=== PATIENT | male | born 1975 ===

== ENCOUNTER 2021-06-28 21:57 | Inpatient (IN) ==
[2021-06-28] MEDS ORDERED: Thiamine 100 MG/ML 2 ml VIAL (200 mg) IV ONE (22:31)
[2021-06-28 22:54] LABS: ABS Neutrophils 10.4 10^3/ul (1.5-7.7); Eosinophil % 0.1 %; Hematocrit 37 % (42-52); Hemoglobin 12.5 g/dL (14.0-18.0); Lymphocyte % 7.9 %; Mean Corpuscular HGB Conc 34 g/dL (31-36); Mean Corpuscular Hemoglobin 38 pg (27-31); Mean Corpuscular Volume 112 fL (80-94); Mean Platelet Volume 7.3 fL (7.4-10.4); Nucleated Red Blood Cells % 0.1; Platelet Count 232 10^3/uL (150-450); Red Blood Count 3.28 10^6 /uL (4.18-5.48); Red Cell Distribution Width 17 % (10-15); White Blood Count 12.4 10^3/uL (3.5-10.8)
[2021-06-28 23:08] LABS: Albumin 4.1 g/dL (3.2-5.2); Albumin/Globulin Ratio 1.5 (1-3); EGFR Non-African American 244.6 (>60); Globulin 2.7 g/dL (2-4); Magnesium 1.8 mg/dL (1.9-2.7); Potassium 3.1 mmol/L (3.5-5.0); Total Bilirubin 0.7 mg/dL (0.2-1.0); Total Protein 6.8 g/dL (6.4-8.9)
[2021-06-28 23:11] LABS: Troponin I 0.01 ng/mL (<0.03)
[2021-06-28 23:28] LABS: TSH Ultra Thyroid Stim Horm 2.51 mcIU/mL (0.34-5.60)
[2021-06-28] MEDS ORDERED: Dextrose 50% Syringe 50 ml 25 GM/50 ML SYRINGE IV PUSH ONE (23:31)
[2021-06-28] MEDS ORDERED: Potassium Chlor 20 meq TAB.ER PO ONE (23:53)
[2021-06-28] MEDS ORDERED: Magnesium Sulfate 2 gm BAG 2 GM/50 ML BAG IVPB ONE (23:53)
[2021-06-29] MEDS ORDERED: Al Hydrox/Mg Hydrox/Simet LIQ 30 ML UDC PO PRN (02:56)
[2021-06-29 03:07] LABS: Urine Appearance Clear; Urine Bilirubin Negative (Negative); Urine Blood Negative (Negative); Urine Color Yellow; Urine Glucose 3+(>=500 mg/dL) (Negative); Urine Ketones 2+ (Negative); Urine Nitrite Negative (Negative); Urine Protein 2+(100 mg/dL) (Negative); Urine Specific Gravity 1.021 (1.002-1.030); Urine Urobilinogen Negative (Negative)
[2021-06-29 03:13] LABS: Urine Bacteria Absent (Absent); Urine Red Blood Cell Absent (Absent); Urine Squamous Epithelial Cell Present (Absent); Urine White Blood Cell Absent (Absent)
[2021-06-29] MEDS: Enoxaparin 40 MG/0.4 ML SYR SUBCUT SCH (03:36)
[2021-06-29] MEDS ORDERED: Dextrose 50% Syringe 50 ml 25 GM/50 ML SYRINGE IV PUSH PRN (03:55)
[2021-06-29] MEDS ORDERED: D10W 1000 ml BAG 1,000 ML IV SCH (04:00)
[2021-06-29] MEDS ORDERED: Thiamine 100 MG/ML 2 ml VIAL 500 MG in NS 0.9% 250 ml 250 ML IV STA (08:52)
[2021-06-29] MEDS ORDERED: [UNRECOGNIZED DRUG - OTHER] IV SCH (09:00)
[2021-06-29] MEDS ORDERED: PRIVIGEN IV SCH (09:00)
[2021-06-29] MEDS ORDERED: IMMUNE GLOB IV SCH (09:00)
[2021-06-29 10:23] LABS: ABS Lymphocytes 0.4 10^3/ul (1.0-4.8); ABS Monocytes 0.3 10^3/ul (0-0.8); ABS Neutrophils 12.5 10^3/ul (1.5-7.7); Eosinophil % 0.2 %; Hematocrit 34 % (42-52); Hemoglobin 11.7 g/dL (14.0-18.0); Lymphocyte % 2.7 %; Mean Corpuscular HGB Conc 35 g/dL (31-36); Mean Corpuscular Hemoglobin 38 pg (27-31); Mean Corpuscular Volume 110 fL (80-94); Mean Platelet Volume 7.5 fL (7.4-10.4); Nucleated Red Blood Cells % 0.2; Platelet Count 235 10^3/uL (150-450); Red Blood Count 3.07 10^6 /uL (4.18-5.48); Red Cell Distribution Width 17 % (10-15); White Blood Count 13.2 10^3/uL (3.5-10.8)
[2021-06-29 10:37] LABS: Albumin 3.8 g/dL (3.2-5.2); Albumin/Globulin Ratio 1.5 (1-3); C Reactive Protein 63.16 mg/L (<8.01); Calcium 8.8 mg/dL (8.6-10.3); EGFR Non-African American 244.6 (>60); Globulin 2.5 g/dL (2-4); Potassium 3.2 mmol/L (3.5-5.0); Total Protein 6.3 g/dL (6.4-8.9)
[2021-06-29 12:06] LABS: Erythrocyte Sed Rate 12 mm/Hr (0-14)
[2021-06-29] MEDS ORDERED: Lactated Ringers 1000 ml BAG 1,000 ML IV ONE (12:21)
[2021-06-29] MEDS ORDERED: Potassium Chlor 20 meq TAB.ER PO ONE (12:43)
[2021-06-29 12:44] LABS: Hepatitis C Antibody Negative (Negative)
[2021-06-29] MEDS: D5W 1/2 NS 1000 ml BAG 1,000 ML IV SCH ×2 (14:52→23:58)
[2021-06-29 15:29] LABS: HIV 4th Generation Preliminary Reactive (Nonreactive)
[2021-06-29] MEDS: PRIVIGEN IV SCH (15:41)
[2021-06-29] MEDS: IMMUNE GLOB IV SCH (15:41)
[2021-06-29] MEDS: [UNRECOGNIZED DRUG - OTHER] IV SCH (15:41)
[2021-06-29 16:30] LABS: INR 0.98 (0.86-1.15)
[2021-06-29 16:54] LABS: Calcium 8.1 mg/dL (8.6-10.3); Potassium 3.8 mmol/L (3.5-5.0)
[2021-06-29 17:00] LABS: EGFR African American 305.3 (>60); EGFR Non-African American 252.3 (>60)
[2021-06-29 17:58] LABS: Activated Partial Thrombo Time 25.3 seconds (26.0-38.0)
[2021-06-29] MEDS: Thiamine 100 MG/ML 2 ml VIAL 500 MG in NS 0.9% 250 ml 250 ML IV SCH (20:38)
[2021-06-30] MEDS: Thiamine 100 MG/ML 2 ml VIAL 500 MG in NS 0.9% 250 ml 250 ML IV SCH ×3 (03:18→18:28)
[2021-06-30 04:53] LABS: Calcium 8.3 mg/dL (8.6-10.3); EGFR African American 325.5 (>60)
[2021-06-30 05:55] LABS: ABS Lymphocytes 0.8 10^3/ul (1.0-4.8); ABS Monocytes 0.5 10^3/ul (0-0.8); ABS Neutrophils 8.1 10^3/ul (1.5-7.7); Eosinophil % 0.2 %; Hematocrit 28 % (42-52); Hemoglobin 9.6 g/dL (14.0-18.0); Lymphocyte % 8.1 %; Mean Corpuscular HGB Conc 35 g/dL (31-36); Mean Corpuscular Hemoglobin 39 pg (27-31); Mean Corpuscular Volume 111 fL (80-94); Mean Platelet Volume 7.7 fL (7.4-10.4); Platelet Count 165 10^3/uL (150-450); Red Blood Count 2.51 10^6 /uL (4.18-5.48); Red Cell Distribution Width 17 % (10-15); White Blood Count 9.4 10^3/uL (3.5-10.8)
[2021-06-30] MEDS ORDERED: Potassium Chlor 20 meq TAB.ER PO ONE ×3 (06:51→09:15)
[2021-06-30] MEDS ORDERED: KCL 20 MEQ/100 ML IVPREMIX 20 MEQ/100 ML BAG IV ONE (06:51)
[2021-06-30 08:07] LABS: Magnesium 1.4 mg/dL (1.9-2.7)
[2021-06-30] MEDS: D5W 1/2 NS 1000 ml BAG 1,000 ML IV SCH (09:21)
[2021-06-30] MEDS: Enoxaparin 40 MG/0.4 ML SYR SUBCUT SCH (09:22)
[2021-06-30] MEDS: Magnesium Sulfate IV 3 GM in NS 0.9% 100 ml BAG 100 ML IVPB ONE ×2 (11:15→12:25)
[2021-06-30 16:05] LABS: Body Fluid Source Cerebral Spinal
[2021-06-30 16:18] LABS: CSF Glucose 81 mg/dL (40-70)
[2021-06-30] MEDS: PRIVIGEN IV SCH (16:48)
[2021-06-30] MEDS: [UNRECOGNIZED DRUG - OTHER] IV SCH (16:48)
[2021-06-30] MEDS: IMMUNE GLOB IV SCH (16:48)
[2021-06-30 18:45] LABS: Body Fluid Appearance Clear; Body Fluid Color Colorless; Body Fluid WBC 0 /mcL; CSF Tube # 4
[2021-06-30 18:46] LABS: Body Fluid Total Cells Counted 0
[2021-07-01] MEDS: Thiamine 100 MG/ML 2 ml VIAL 500 MG in NS 0.9% 250 ml 250 ML IV SCH ×4 (01:09→16:39)
[2021-07-01 05:38] LABS: Hematocrit 27 % (42-52); Hemoglobin 9.5 g/dL (14.0-18.0); Mean Corpuscular HGB Conc 35 g/dL (31-36); Mean Corpuscular Hemoglobin 39 pg (27-31); Mean Corpuscular Volume 113 fL (80-94); Mean Platelet Volume 7.8 fL (7.4-10.4); Platelet Count 151 10^3/uL (150-450); Red Blood Count 2.41 10^6 /uL (4.18-5.48); Red Cell Distribution Width 17 % (10-15)
[2021-07-01 05:54] LABS: Calcium 7.9 mg/dL (8.6-10.3); EGFR African American 360.9 (>60); EGFR Non-African American 298.3 (>60); Potassium 3.7 mmol/L (3.5-5.0)
[2021-07-01] MEDS: Enoxaparin 40 MG/0.4 ML SYR SUBCUT SCH (08:59)
[2021-07-01 09:00] LABS: Magnesium 1.7 mg/dL (1.9-2.7)
[2021-07-01] MEDS ORDERED: Magnesium Sulfate 2 gm BAG 2 GM/50 ML BAG IVPB ONE (13:03)
[2021-07-02] MEDS: Thiamine 100 MG/ML 2 ml VIAL 500 MG in NS 0.9% 250 ml 250 ML IV SCH ×3 (01:30→17:34)
[2021-07-02 04:56] LABS: Hematocrit 28 % (42-52); Hemoglobin 9.4 g/dL (14.0-18.0); Mean Corpuscular HGB Conc 34 g/dL (31-36); Mean Corpuscular Hemoglobin 38 pg (27-31); Mean Corpuscular Volume 113 fL (80-94); Mean Platelet Volume 7.7 fL (7.4-10.4); Platelet Count 168 10^3/uL (150-450); Red Blood Count 2.48 10^6 /uL (4.18-5.48); Red Cell Distribution Width 17 % (10-15); White Blood Count 5.8 10^3/uL (3.5-10.8)
[2021-07-02 05:16] LABS: Calcium 7.9 mg/dL (8.6-10.3); EGFR African American 325.5 (>60); Potassium 3.7 mmol/L (3.5-5.0)
[2021-07-02 05:26] LABS: ABS Lymphocytes 1.2 10^3/ul (1.0-4.8); ABS Monocytes 0.6 10^3/ul (0-0.8); ABS Neutrophils 3.8 10^3/ul (1.5-7.7); Eosinophil % 0.7 %; Lymphocyte % 21.4 %; Nucleated Red Blood Cells % 0.2
[2021-07-02 07:39] LABS: Magnesium 1.8 mg/dL (1.9-2.7)
[2021-07-02] MEDS: Enoxaparin 40 MG/0.4 ML SYR SUBCUT SCH (08:12)
[2021-07-02] MEDS ORDERED: Magnesium Sulfate 2 gm BAG 2 GM/50 ML BAG IVPB ONE (13:07)
[2021-07-03] MEDS: Thiamine 100 MG/ML 2 ml VIAL 500 MG in NS 0.9% 250 ml 250 ML IV SCH ×3 (02:02→17:29)
[2021-07-03 08:07] LABS: Hematocrit 30 % (42-52); Hemoglobin 10.5 g/dL (14.0-18.0); Mean Corpuscular HGB Conc 35 g/dL (31-36); Mean Corpuscular Hemoglobin 39 pg (27-31); Mean Corpuscular Volume 111 fL (80-94); Mean Platelet Volume 7.1 fL (7.4-10.4); Platelet Count 217 10^3/uL (150-450); Red Blood Count 2.71 10^6 /uL (4.18-5.48); Red Cell Distribution Width 17 % (10-15); White Blood Count 4.3 10^3/uL (3.5-10.8)
[2021-07-03 08:30] LABS: Calcium 8.4 mg/dL (8.6-10.3); EGFR African American 271.2 (>60); EGFR Non-African American 224.1 (>60); Magnesium 1.9 mg/dL (1.9-2.7); Potassium 4.3 mmol/L (3.5-5.0)
[2021-07-03] MEDS: Enoxaparin 40 MG/0.4 ML SYR SUBCUT SCH (08:31)
[2021-07-03 09:15] LABS: ABS Lymphocytes 0.9 10^3/ul (1.0-4.8); ABS Monocytes 0.7 10^3/ul (0-0.8); ABS Neutrophils 2.6 10^3/ul (1.5-7.7); Eosinophil % 0.8 %; Lymphocyte % 22.1 %; Nucleated Red Blood Cells % 0.1
[2021-07-03 09:19] LABS: Macrocytosis 2+
[2021-07-03 12:29] LABS: B. garinii/B. afzellii PCR Negative (Negative); Lyme Disease Source CSF
[2021-07-03 14:41] LABS: HIV-1 Ab Differentiation,P Negative (Negative); HIV-2 Ab Differentiation,P Negative (Negative)
[2021-07-03 23:57] LABS: Albumin 2.3 g/dL (3.4-4.7); Albumin/Globulin Ratio 0.82; Gamma Globulin 1.3 g/dL (0.6-1.6); Total Protein(PEP) 5.1 g/dL (6.3 - 7.9)
[2021-07-04] MEDS: Thiamine 100 MG/ML 2 ml VIAL 500 MG in NS 0.9% 250 ml 250 ML IV SCH (00:57)
[2021-07-04 07:49] LABS: Hematocrit 32 % (42-52); Hemoglobin 10.9 g/dL (14.0-18.0); Mean Corpuscular HGB Conc 35 g/dL (31-36); Mean Corpuscular Hemoglobin 39 pg (27-31); Mean Corpuscular Volume 111 fL (80-94); Mean Platelet Volume 7.1 fL (7.4-10.4); Platelet Count 244 10^3/uL (150-450); Red Blood Count 2.83 10^6 /uL (4.18-5.48); Red Cell Distribution Width 18 % (10-15); White Blood Count 4.9 10^3/uL (3.5-10.8)
[2021-07-04 07:58] LABS: Calcium 8.6 mg/dL (8.6-10.3); EGFR African American 210.8 (>60); EGFR Non-African American 174.2 (>60); Potassium 3.9 mmol/L (3.5-5.0)
[2021-07-04] MEDS: Enoxaparin 40 MG/0.4 ML SYR SUBCUT SCH (09:54)
[2021-07-04 15:47] VITALS: BP 119/73
[2021-07-05 06:53] LABS: HIV-1 RNA (PCR) Undetected copies/mL (Undetected)
[2021-07-05 23:01] LABS: Lyme CNS IgG Ab Index Interp Positive; Lyme CNS IgG Ab Index Value 1.6 (0.6 - 1.2)
[2021-07-10 16:15] LABS: Asialo GM1 IgG Antibody Negative (Negative); Asialo GM1 IgM Antibody Negative (Negative); Disialo GD1b IgG Antibody Negative (Negative); Disialo GD1b IgM Antibody Negative (Negative); Monosialo GM1 IgG Antibody Negative (Negative); Monosialo GM1 IgM Antibody Negative (Negative)
== END 2021-07-04 15:00 | DRG 720 ==
LOC: ED 21:57 → SUATTDRO 06-29 02:56 → EDHOLD 06-29 03:24 → MEDTELE 06-29 10:20 → MED 06-29 14:29 → MEDTELE 07-02 11:46
PROVIDERS: ADMIT Internal Medicine; ATTEND Internal Medicine

== ENCOUNTER 2021-07-04 12:52 | Inpatient (IN) ==
[2021-07-04] MEDS ORDERED: Senna TAB 8.6 mg TAB PO PRN (17:30)
[2021-07-04] MEDS ORDERED: Magnesium Hydroxide LIQ 30 ML UDC PO PRN (17:30)
[2021-07-05] MEDS: Enoxaparin 40 MG/0.4 ML SYR SUBCUT SCH (09:12)
[2021-07-06 06:11] LABS: Albumin 3.2 g/dL (3.2-5.2); Albumin/Globulin Ratio 1.1 (1-3); EGFR African American 215.7 (>60); EGFR Non-African American 178.2 (>60); Potassium 4.6 mmol/L (3.5-5.0); Total Bilirubin 0.3 mg/dL (0.2-1.0); Total Protein 6.2 g/dL (6.4-8.9)
[2021-07-06 06:13] LABS: ABS Basophils 0.1 10^3/ul (0-0.2); ABS Eosinophils 0.1 10^3/ul (0-0.6); ABS Lymphocytes 1.1 10^3/ul (1.0-4.8); ABS Monocytes 1.3 10^3/ul (0-0.8); ABS Neutrophils 2.8 10^3/ul (1.5-7.7); Eosinophil % 1.6 %; Hematocrit 29 % (42-52); Lymphocyte % 20.7 %; Mean Corpuscular HGB Conc 35 g/dL (31-36); Mean Corpuscular Hemoglobin 39 pg (27-31); Mean Corpuscular Volume 111 fL (80-94); Platelet Count 304 10^3/uL (150-450); Red Cell Distribution Width 17 % (10-15); White Blood Count 5.3 10^3/uL (3.5-10.8)
[2021-07-06] MEDS: Enoxaparin 40 MG/0.4 ML SYR SUBCUT SCH (08:31)
[2021-07-07] MEDS: Enoxaparin 40 MG/0.4 ML SYR SUBCUT SCH (07:47)
[2021-07-08] MEDS: Enoxaparin 40 MG/0.4 ML SYR SUBCUT SCH (08:09)
[2021-07-09] MEDS: Enoxaparin 40 MG/0.4 ML SYR SUBCUT SCH (09:16)
[2021-07-10] MEDS: Enoxaparin 40 MG/0.4 ML SYR SUBCUT SCH (10:14)
[2021-07-11] MEDS: Enoxaparin 40 MG/0.4 ML SYR SUBCUT SCH (09:44)
[2021-07-12] MEDS: Enoxaparin 40 MG/0.4 ML SYR SUBCUT SCH (09:37)
[2021-07-13 07:15] LABS: Albumin 3.5 g/dL (3.2-5.2); Albumin/Globulin Ratio 1.1 (1-3); Calcium 9.3 mg/dL (8.6-10.3); EGFR African American 215.7 (>60); EGFR Non-African American 178.2 (>60); Globulin 3.3 g/dL (2-4); Potassium 3.9 mmol/L (3.5-5.0); Total Bilirubin 0.4 mg/dL (0.2-1.0); Total Protein 6.8 g/dL (6.4-8.9)
[2021-07-13 07:19] LABS: ABS Eosinophils 0.1 10^3/ul (0-0.6); ABS Lymphocytes 1.7 10^3/ul (1.0-4.8); ABS Monocytes 0.9 10^3/ul (0-0.8); ABS Neutrophils 4.5 10^3/ul (1.5-7.7); Eosinophil % 1.5 %; Hematocrit 32 % (42-52); Hemoglobin 11.1 g/dL (14.0-18.0); Lymphocyte % 23.8 %; Mean Corpuscular HGB Conc 34 g/dL (31-36); Mean Corpuscular Hemoglobin 38 pg (27-31); Mean Corpuscular Volume 110 fL (80-94); Mean Platelet Volume 7.4 fL (7.4-10.4); Platelet Count 289 10^3/uL (150-450); Red Blood Count 2.93 10^6 /uL (4.18-5.48); Red Cell Distribution Width 17 % (10-15); White Blood Count 7.3 10^3/uL (3.5-10.8)
[2021-07-13] MEDS: Enoxaparin 40 MG/0.4 ML SYR SUBCUT SCH (09:25)
[2021-07-14] MEDS: Enoxaparin 40 MG/0.4 ML SYR SUBCUT SCH (09:24)
[2021-07-15] MEDS: Enoxaparin 40 MG/0.4 ML SYR SUBCUT SCH (09:55)
[2021-07-16] MEDS: Enoxaparin 40 MG/0.4 ML SYR SUBCUT SCH (08:34)
[2021-07-17] MEDS: Enoxaparin 40 MG/0.4 ML SYR SUBCUT SCH (10:02)
[2021-07-18] MEDS: Enoxaparin 40 MG/0.4 ML SYR SUBCUT SCH (08:32)
[2021-07-19] MEDS: Enoxaparin 40 MG/0.4 ML SYR SUBCUT SCH (09:21)
[2021-07-20 06:29] LABS: ABS Basophils 0.1 10^3/ul (0-0.2); ABS Eosinophils 0.3 10^3/ul (0-0.6); ABS Lymphocytes 1.7 10^3/ul (1.0-4.8); ABS Neutrophils 3.6 10^3/ul (1.5-7.7); Eosinophil % 4.6 %; Hematocrit 32 % (42-52); Hemoglobin 10.9 g/dL (14.0-18.0); Mean Corpuscular HGB Conc 34 g/dL (31-36); Mean Corpuscular Hemoglobin 37 pg (27-31); Mean Corpuscular Volume 109 fL (80-94); Mean Platelet Volume 7.7 fL (7.4-10.4); Platelet Count 303 10^3/uL (150-450); Red Blood Count 2.95 10^6 /uL (4.18-5.48); Red Cell Distribution Width 16 % (10-15); White Blood Count 6.7 10^3/uL (3.5-10.8)
[2021-07-20 06:35] LABS: Albumin 3.1 g/dL (3.2-5.2); Albumin/Globulin Ratio 1.1 (1-3); EGFR African American 193.2 (>60); EGFR Non-African American 159.7 (>60); Globulin 2.7 g/dL (2-4); Total Bilirubin 0.4 mg/dL (0.2-1.0); Total Protein 5.8 g/dL (6.4-8.9)
[2021-07-20] MEDS: Enoxaparin 40 MG/0.4 ML SYR SUBCUT SCH (08:48)
[2021-07-21] MEDS: Enoxaparin 40 MG/0.4 ML SYR SUBCUT SCH (10:02)
[2021-07-22] MEDS: Enoxaparin 40 MG/0.4 ML SYR SUBCUT SCH (10:03)
[2021-07-23] MEDS: Enoxaparin 40 MG/0.4 ML SYR SUBCUT SCH (10:09)
[2021-07-24] MEDS: Enoxaparin 40 MG/0.4 ML SYR SUBCUT SCH (07:55)
[2021-07-25] MEDS: Enoxaparin 40 MG/0.4 ML SYR SUBCUT SCH (08:12)
[2021-07-25 16:13] VITALS: BP 126/74
== END 2021-07-25 17:15 | disposition home health service (06) | DRG 421 ==
LOC: PMRU 16:11 → MED 07-19 12:41 → PMRU 07-24 07:43
PROVIDERS: ADMIT Physical Medicine & Rehabilitation; ATTEND Physical Medicine & Rehabilitation

== ENCOUNTER 2021-11-15 19:05 | Inpatient (IN) ==
[2021-11-15] MEDS ORDERED: NS 0.9% 1000 ml BAG 1,000 ML IV.FLUID IV ONE (19:12)
[2021-11-15] MEDS ORDERED: Thiamine 100 MG/ML 2 ml VIAL 100 MG, Folic Acid IV 1 MG, Multiple Vitamin IV ADULT 10 M... IV ONE (19:23)
[2021-11-15 19:56] LABS: ABS Lymphocytes 1.5 10^3/ul (1.0-4.8); ABS Neutrophils 8.6 10^3/ul (1.5-7.7); Eosinophil % 0.3 %; Hematocrit 38 % (42-52); Hemoglobin 13.4 g/dL (14.0-18.0); Lymphocyte % 13.2 %; Mean Corpuscular HGB Conc 35 g/dL (31-36); Mean Corpuscular Hemoglobin 35 pg (27-31); Mean Corpuscular Volume 99 fL (80-94); Mean Platelet Volume 7.6 fL (7.4-10.4); Platelet Count 267 10^3/uL (150-450); Red Blood Count 3.87 10^6 /uL (4.18-5.48); Red Cell Distribution Width 15 % (10-15); White Blood Count 11.2 10^3/uL (3.5-10.8)
[2021-11-15 20:09] LABS: Activated Partial Thrombo Time 29.1 seconds (26.0-38.0); INR 0.99 (0.86-1.15)
[2021-11-15 20:14] LABS: Alcohol, S < 13 mg/dL (<13)
[2021-11-15 20:19] LABS: Urine Appearance Turbid; Urine Bacteria 3+ (Absent); Urine Bilirubin Negative (Negative); Urine Blood 3+ (Negative); Urine Glucose 1+(50 mg/dL) (Negative); Urine Ketones Trace (Negative); Urine Nitrite Negative (Negative); Urine Protein 2+(100 mg/dL) (Negative); Urine Red Blood Cell 3+(>10/hpf) (Absent); Urine Specific Gravity 1.023 (1.002-1.030); Urine Urobilinogen Positive (Negative); Urine White Blood Cell 3+(>20/hpf) (Absent)
[2021-11-15 20:20] LABS: Urine Color Amber
[2021-11-15] MEDS ORDERED: Vancomycin 1,500 MG in NS 0.9% 250 ml 250 ML IVPB ONE (20:20)
[2021-11-15] MEDS ORDERED: cefTRIAXone 1 gm/50 mL NS BAG 1 GM/50 ML BAG IV ONE (20:20)
[2021-11-15 20:30] LABS: TSH Ultra Thyroid Stim Horm 1.44 mcIU/mL (0.34-5.60)
[2021-11-15 20:34] LABS: ALT 41 U/L (7-52); AST 31 U/L (13-39); Albumin 4.4 g/dL (3.2-5.2); Albumin/Globulin Ratio 1.6 (1-3); Alkaline Phosphatase 61 U/L (35-149); Blood Urea Nitrogen 34 mg/dL (6-24); C Reactive Protein 95.49 mg/L (<8.01); CO2 Carbon Dioxide 30 mmol/L (22-32); Calcium 10.7 mg/dL (8.6-10.3); Chloride 98 mmol/L (101-111); Globulin 2.7 g/dL (2-4); Glucose 135 mg/dL (70-100); Indirect Bilirubin 1.2 mg/dL (0.3-1.0); Potassium 3.3 mmol/L (3.5-5.0); Total Protein 7.1 g/dL (6.4-8.9); eGFR CKD-EPI 109.6 (>60)
[2021-11-15 20:35] LABS: Troponin I 0.01 ng/mL (<0.03)
[2021-11-15 20:36] LABS: Anion Gap 19 mmol/L (2-11); Sodium 147 mmol/L (135-145)
[2021-11-15] MEDS ORDERED: Potassium Phosphate IV 5 MMOLE in NS 0.9% 250 ml 250 ML IVPB ONE (21:38)
[2021-11-15 23:36] LABS: Salicylate < 2.50 mg/dL (<30)
[2021-11-16 00:01] LABS: Folate > 20.00 ng/mL (5.90-24.80); Vitamin B12 1337 pg/mL (180-914)
[2021-11-16 01:05] LABS: Phosphorus 1.6 mg/dL (2.5-5.0)
[2021-11-16] MEDS: Nicotine PATCH 21 MG/24 HR PATCH TRANSDERM SCH ×2 (01:08→10:21)
[2021-11-16] MEDS: Enoxaparin 40 MG/0.4 ML SYR SUBCUT SCH ×2 (01:08→21:00)
[2021-11-16 01:13] LABS: Creatine Kinase 60 U/L (10-223)
[2021-11-16 01:16] LABS: Urine Benzodiazepine Screen None Detected (None Detect); Urine Cannabinoids Screen Presumptive Positive (None Detect); Urine Opiates Screen None Detected (None Detect)
[2021-11-16] MEDS ORDERED: Potassium Phosphate IV 15 MMOLE in NS 0.9% 250 ml 250 ML IVPB ONE (06:00)
[2021-11-16 08:59] LABS: Magnesium 1.5 mg/dL (1.9-2.7)
[2021-11-16] MEDS: Multivitamins/Minerals TAB PO SCH (10:01)
[2021-11-16] MEDS: cefTRIAXone 1 gm/50 mL NS BAG 1 GM/50 ML BAG IVPB SCH (10:21)
[2021-11-16] MEDS: Thiamine 100 MG/ML 2 ml VIAL 500 MG in NS 0.9% 250 ml 250 ML IV SCH ×3 (12:08→23:02)
[2021-11-16] MEDS ORDERED: Magnesium Sulfate 2 gm BAG 2 GM/50 ML BAG IVPB ONE (13:46)
[2021-11-16 15:21] LABS: Albumin 3.2 g/dL (3.2-5.2); Albumin/Globulin Ratio 1.5 (1-3); Calcium 8.3 mg/dL (8.6-10.3); Globulin 2.1 g/dL (2-4); Magnesium 1.5 mg/dL (1.9-2.7); Phosphorus 4.5 mg/dL (2.5-5.0); Total Bilirubin 0.8 mg/dL (0.2-1.0); Total Protein 5.3 g/dL (6.4-8.9); eGFR CKD-EPI 130.8 (>60)
[2021-11-16 15:41] LABS: Potassium 2.4 mmol/L (3.5-5.0)
[2021-11-16] MEDS ORDERED: Potassium Chlor 20 meq TAB.ER PO ONE (15:54)
[2021-11-16] MEDS ORDERED: Magnesium Sulf 4 GM/100 ML IV 4,000 MG/100 ML BAG IVPB ONE (15:54)
[2021-11-16] MEDS: KCL 20 MEQ/100 ML IVPREMIX 20 MEQ/100 ML BAG IV SCH ×2 (16:47→21:55)
[2021-11-16] MEDS ORDERED: SODIUM CHLORIDE IV SCH (18:00)
[2021-11-16] MEDS ORDERED: [UNRECOGNIZED DRUG - OTHER] IV SCH (18:00)
[2021-11-16] MEDS ORDERED: POTASSIUM CHLORIDE IV SCH (18:00)
[2021-11-16 20:12] LABS: Calcium 8.4 mg/dL (8.6-10.3); Magnesium 2.9 mg/dL (1.9-2.7); eGFR CKD-EPI 122.2 (>60)
[2021-11-17] MEDS: NS 0.45% IVPB ONE ×2 (00:04→02:19)
[2021-11-17] MEDS: POTASSIUM CHLORIDE IVPB ONE ×2 (00:04→02:19)
[2021-11-17] MEDS ORDERED: cefTRIAXone 1 gm/50 mL NS BAG 1 GM/50 ML BAG IVPB SCH (09:00)
[2021-11-17] MEDS: cefTRIAXone 1 gm/50 mL NS BAG 1 GM/50 ML BAG IVPB SCH (09:43)
[2021-11-17] MEDS: Nicotine PATCH 21 MG/24 HR PATCH TRANSDERM SCH (09:46)
[2021-11-17] MEDS: Multivitamins/Minerals TAB PO SCH (09:46)
[2021-11-17 09:51] LABS: Calcium 8.3 mg/dL (8.6-10.3); eGFR CKD-EPI 123.6 (>60)
[2021-11-17] MEDS: Thiamine 100 MG/ML 2 ml VIAL 500 MG in NS 0.9% 250 ml 250 ML IV SCH ×3 (11:34→20:56)
[2021-11-17] MEDS ORDERED: Potassium Chloride LIQUID 20 MEQ/15 ML LIQUID PO ONE ×2 (13:08→20:00)
[2021-11-17] MEDS: KCL 10 MEQ/50 ML IVPREMIX 10 MEQ/50 ML BAG IV SCH ×2 (13:50→15:10)
[2021-11-17] MEDS: Enoxaparin 40 MG/0.4 ML SYR SUBCUT SCH (20:55)
[2021-11-17] MEDS ORDERED: Lorazepam PYXIS KEY PRN (23:32)
[2021-11-17] MEDS ORDERED: LORazepam 2 mg VIAL 1 ml IV PUSH ONE (23:32)
[2021-11-18] MEDS: LORazepam 2 mg VIAL 1 ml IV PUSH SCH ×2 (00:57→19:03)
[2021-11-18] MEDS: Thiamine 100 MG/ML 2 ml VIAL 250 MG in NS 0.9% 100 ml BAG 100 ML IV SCH (06:22)
[2021-11-18] MEDS: Nicotine PATCH 21 MG/24 HR PATCH TRANSDERM SCH (09:09)
[2021-11-18] MEDS: Multivitamins/Minerals TAB PO SCH (09:09)
[2021-11-18] MEDS ORDERED: D5W 1/4 NS 1000 ml BAG 1,000 ML IV SCH (18:00)
[2021-11-18 19:17] LABS: ABS Eosinophils 0.1 10^3/ul (0-0.6); ABS Lymphocytes 1.7 10^3/ul (1.0-4.8); ABS Monocytes 0.6 10^3/ul (0-0.8); Eosinophil % 1.7 %; Hematocrit 34 % (42-52); Hemoglobin 11.2 g/dL (14.0-18.0); Lymphocyte % 25.8 %; Mean Corpuscular HGB Conc 33 g/dL (31-36); Mean Corpuscular Hemoglobin 34 pg (27-31); Mean Corpuscular Volume 102 fL (80-94); Mean Platelet Volume 7.4 fL (7.4-10.4); Platelet Count 280 10^3/uL (150-450); Red Cell Distribution Width 16 % (10-15); White Blood Count 6.4 10^3/uL (3.5-10.8)
[2021-11-18 19:34] LABS: Albumin 3.5 g/dL (3.2-5.2); Albumin/Globulin Ratio 1.5 (1-3); Calcium 9.1 mg/dL (8.6-10.3); Globulin 2.4 g/dL (2-4); Potassium 3.8 mmol/L (3.5-5.0); Total Bilirubin 0.5 mg/dL (0.2-1.0); Total Protein 5.9 g/dL (6.4-8.9); eGFR CKD-EPI 118.5 (>60)
[2021-11-18] MEDS: Enoxaparin 40 MG/0.4 ML SYR SUBCUT SCH (22:01)
[2021-11-19] MEDS: LORazepam 2 mg VIAL 1 ml IV PUSH SCH ×3 (01:19→20:57)
[2021-11-19] MEDS ORDERED: D5W 1/2 NS 1000 ml BAG 1,000 ML IV SCH ×2 (04:00→15:00)
[2021-11-19] MEDS: Thiamine 100 MG/ML 2 ml VIAL 250 MG in NS 0.9% 100 ml BAG 100 ML IV SCH (05:07)
[2021-11-19] MEDS: Multivitamins/Minerals TAB PO SCH (09:35)
[2021-11-19] MEDS: Nicotine PATCH 21 MG/24 HR PATCH TRANSDERM SCH (09:36)
[2021-11-19] MEDS ORDERED: LORazepam 2 mg VIAL 1 ml IV PUSH ONE (20:45)
[2021-11-19] MEDS: Enoxaparin 40 MG/0.4 ML SYR SUBCUT SCH (21:31)
[2021-11-20] MEDS: Thiamine 100 MG/ML 2 ml VIAL 250 MG in NS 0.9% 100 ml BAG 100 ML IV SCH (05:14)
[2021-11-20 06:30] LABS: ABS Basophils 0.1 10^3/ul (0-0.2); ABS Eosinophils 0.1 10^3/ul (0-0.6); ABS Lymphocytes 1.4 10^3/ul (1.0-4.8); ABS Monocytes 0.5 10^3/ul (0-0.8); ABS Neutrophils 2.9 10^3/ul (1.5-7.7); Hematocrit 28 % (42-52); Hemoglobin 9.4 g/dL (14.0-18.0); Lymphocyte % 28.1 %; Mean Corpuscular HGB Conc 34 g/dL (31-36); Mean Corpuscular Hemoglobin 34 pg (27-31); Mean Corpuscular Volume 100 fL (80-94); Mean Platelet Volume 7.3 fL (7.4-10.4); Platelet Count 228 10^3/uL (150-450); Red Blood Count 2.77 10^6 /uL (4.18-5.48); Red Cell Distribution Width 15 % (10-15)
[2021-11-20 06:53] LABS: Albumin 2.8 g/dL (3.2-5.2); Albumin/Globulin Ratio 1.3 (1-3); Calcium 8.7 mg/dL (8.6-10.3); Globulin 2.1 g/dL (2-4); Magnesium 1.5 mg/dL (1.9-2.7); Potassium 4.2 mmol/L (3.5-5.0); Total Bilirubin 0.4 mg/dL (0.2-1.0); Total Protein 4.9 g/dL (6.4-8.9); eGFR CKD-EPI 132.6 (>60)
[2021-11-20] MEDS ORDERED: Senna TAB 8.6 mg TAB PO PRN (07:46)
[2021-11-20] MEDS ORDERED: Magnesium Hydroxide LIQ 30 ML UDC PO PRN (07:47)
[2021-11-20] MEDS ORDERED: Magnesium Hydroxide LIQ 30 ML UDC PO SCH (09:00)
[2021-11-20] MEDS: Nicotine PATCH 21 MG/24 HR PATCH TRANSDERM SCH (09:09)
[2021-11-20] MEDS: Multivitamins/Minerals TAB PO SCH (09:09)
[2021-11-20 14:51] LABS: Hematocrit 31 % (42-52); Hemoglobin 10.2 g/dL (14.0-18.0); Mean Corpuscular HGB Conc 33 g/dL (31-36); Mean Corpuscular Hemoglobin 34 pg (27-31); Mean Corpuscular Volume 101 fL (80-94); Mean Platelet Volume 7.5 fL (7.4-10.4); Platelet Count 233 10^3/uL (150-450); Red Blood Count 3.02 10^6 /uL (4.18-5.48); Red Cell Distribution Width 16 % (10-15); White Blood Count 4.5 10^3/uL (3.5-10.8)
[2021-11-20] MEDS: Enoxaparin 40 MG/0.4 ML SYR SUBCUT SCH (20:28)
[2021-11-20 22:57] LABS: Urine Appearance Cloudy; Urine Bilirubin Negative (Negative); Urine Blood 3+ (Negative); Urine Color Amber; Urine Glucose Negative (Negative); Urine Ketones Negative (Negative); Urine Nitrite Negative (Negative); Urine Protein 1+(30 mg/dL) (Negative); Urine Specific Gravity 1.018 (1.002-1.030); Urine Urobilinogen Negative (Negative)
[2021-11-20 23:05] LABS: Urine Bacteria 1+ (Absent); Urine Red Blood Cell 3+(>10/hpf) (Absent); Urine Squamous Epithelial Cell Present (Absent); Urine White Blood Cell 3+(>20/hpf) (Absent)
[2021-11-21] MEDS: Thiamine 100 MG/ML 2 ml VIAL 250 MG in NS 0.9% 100 ml BAG 100 ML IV SCH (05:05)
[2021-11-21 05:42] LABS: Hematocrit 29 % (42-52); Hemoglobin 9.8 g/dL (14.0-18.0); Mean Corpuscular HGB Conc 34 g/dL (31-36); Mean Corpuscular Hemoglobin 35 pg (27-31); Mean Corpuscular Volume 102 fL (80-94); Mean Platelet Volume 7.5 fL (7.4-10.4); Platelet Count 257 10^3/uL (150-450); Red Blood Count 2.83 10^6 /uL (4.18-5.48); Red Cell Distribution Width 15 % (10-15); White Blood Count 4.8 10^3/uL (3.5-10.8)
[2021-11-21] MEDS: Multivitamins/Minerals TAB PO SCH (09:12)
[2021-11-21] MEDS: Nicotine PATCH 21 MG/24 HR PATCH TRANSDERM SCH (09:14)
[2021-11-21] MEDS ORDERED: Magnesium Sulf 4 GM/100 ML IV 4,000 MG/100 ML BAG IVPB ONE (15:33)
[2021-11-21] MEDS: Enoxaparin 40 MG/0.4 ML SYR SUBCUT SCH (20:10)
[2021-11-22] MEDS: Thiamine 100 MG/ML 2 ml VIAL 250 MG in NS 0.9% 100 ml BAG 100 ML IV SCH (05:40)
[2021-11-22 07:23] LABS: Transferrin 135
[2021-11-22 07:24] LABS: % Iron Saturation 30
[2021-11-22 07:30] LABS: Total Iron Binding Capacity 159
[2021-11-22] MEDS: Nicotine PATCH 21 MG/24 HR PATCH TRANSDERM SCH (08:39)
[2021-11-22] MEDS: Multivitamins/Minerals TAB PO SCH (08:39)
[2021-11-22] MEDS ORDERED: cefTRIAXone 1 gm/50 mL NS BAG 1 GM/50 ML BAG IVPB SCH (09:00)
[2021-11-22] MEDS: Enoxaparin 40 MG/0.4 ML SYR SUBCUT SCH (19:26)
[2021-11-23 02:49] LABS: Urine Appearance Cloudy; Urine Bilirubin Negative (Negative); Urine Blood Negative (Negative); Urine Color Yellow; Urine Glucose 1+(50 mg/dL) (Negative); Urine Ketones Negative (Negative); Urine Nitrite Negative (Negative); Urine Protein Negative (Negative); Urine Urobilinogen Negative (Negative)
[2021-11-23 04:16] VITALS: BP 104/67
[2021-11-23] MEDS: Nicotine PATCH 21 MG/24 HR PATCH TRANSDERM SCH (09:24)
[2021-11-23] MEDS: Multivitamins/Minerals TAB PO SCH (09:24)
== END 2021-11-23 14:53 | disposition swing bed (61) | DRG 421 ==
LOC: ED 19:05 → SUATTDRO 22:41 → EDHOLD 22:41 → MEDTELE 11-16 00:59
PROVIDERS: ADMIT Student in an Organized Health Care Education/Training Program; ATTEND Internal Medicine

== ENCOUNTER 2021-11-23 15:01 | Inpatient (IN) ==
[2021-11-23] MEDS ORDERED: Magnesium Hydroxide LIQ 30 ML UDC PO PRN (15:10)
[2021-11-23] MEDS ORDERED: Senna TAB 8.6 mg TAB PO PRN (15:10)
[2021-11-23] MEDS ORDERED: Haloperidol 5 mg/ml SDV IV/IM 5 MG/ML AMP IM ONE (16:44)
[2021-11-23] MEDS: Enoxaparin 40 MG/0.4 ML SYR SUBCUT SCH (20:25)
[2021-11-24] MEDS: Multivitamins/Minerals TAB PO SCH (08:21)
[2021-11-24] MEDS: Nicotine PATCH 21 MG/24 HR PATCH TRANSDERM SCH (08:21)
[2021-11-24] MEDS: Thiamine 100 MG/ML 2 ml VIAL 500 MG in NS 0.9% 250 ml 250 ML IV SCH ×3 (11:48→20:15)
[2021-11-24] MEDS: Enoxaparin 40 MG/0.4 ML SYR SUBCUT SCH (20:14)
[2021-11-25 06:12] LABS: ABS Basophils 0.1 10^3/ul (0-0.2); ABS Eosinophils 0.1 10^3/ul (0-0.6); ABS Lymphocytes 1.7 10^3/ul (1.0-4.8); ABS Monocytes 0.6 10^3/ul (0-0.8); ABS Neutrophils 2.7 10^3/ul (1.5-7.7); Eosinophil % 2.1 %; Hematocrit 26 % (42-52); Hemoglobin 8.7 g/dL (14.0-18.0); Lymphocyte % 33.7 %; Mean Corpuscular HGB Conc 34 g/dL (31-36); Mean Corpuscular Hemoglobin 34 pg (27-31); Mean Corpuscular Volume 102 fL (80-94); Mean Platelet Volume 7.7 fL (7.4-10.4); Nucleated Red Blood Cells % 0.1; Platelet Count 282 10^3/uL (150-450); Red Blood Count 2.54 10^6 /uL (4.18-5.48); Red Cell Distribution Width 16 % (10-15); White Blood Count 5.2 10^3/uL (3.5-10.8)
[2021-11-25 06:31] LABS: Calcium 8.9 mg/dL (8.6-10.3); Magnesium 1.9 mg/dL (1.9-2.7); Potassium 4.2 mmol/L (3.5-5.0); eGFR CKD-EPI 114.7 (>60)
[2021-11-25] MEDS: Multivitamins/Minerals TAB PO SCH (09:01)
[2021-11-25] MEDS: Nicotine PATCH 21 MG/24 HR PATCH TRANSDERM SCH (09:02)
[2021-11-25] MEDS: Thiamine 100 MG/ML 2 ml VIAL 500 MG in NS 0.9% 250 ml 250 ML IV SCH ×3 (09:06→20:45)
[2021-11-25] MEDS: Enoxaparin 40 MG/0.4 ML SYR SUBCUT SCH (20:45)
[2021-11-26] MEDS: Thiamine 100 MG/ML 2 ml VIAL 500 MG in NS 0.9% 250 ml 250 ML IV SCH ×3 (06:27→21:29)
[2021-11-26] MEDS: Nicotine PATCH 21 MG/24 HR PATCH TRANSDERM SCH (07:45)
[2021-11-26] MEDS: Multivitamins/Minerals TAB PO SCH (07:46)
[2021-11-26] MEDS: Enoxaparin 40 MG/0.4 ML SYR SUBCUT SCH (21:29)
[2021-11-27] MEDS: Thiamine 100 MG/ML 2 ml VIAL 500 MG in NS 0.9% 250 ml 250 ML IV SCH ×3 (05:25→21:09)
[2021-11-27] MEDS: Multivitamins/Minerals TAB PO SCH (07:11)
[2021-11-27] MEDS: Nicotine PATCH 21 MG/24 HR PATCH TRANSDERM SCH (07:11)
[2021-11-27] MEDS: Enoxaparin 40 MG/0.4 ML SYR SUBCUT SCH (21:08)
[2021-11-28] MEDS: Thiamine 100 MG/ML 2 ml VIAL 500 MG in NS 0.9% 250 ml 250 ML IV SCH ×3 (05:10→20:26)
[2021-11-28] MEDS: Multivitamins/Minerals TAB PO SCH (08:26)
[2021-11-28] MEDS: Nicotine PATCH 21 MG/24 HR PATCH TRANSDERM SCH (08:27)
[2021-11-28] MEDS: Enoxaparin 40 MG/0.4 ML SYR SUBCUT SCH (20:26)
[2021-11-29] MEDS: Thiamine 100 MG/ML 2 ml VIAL 500 MG in NS 0.9% 250 ml 250 ML IV SCH ×3 (05:59→20:42)
[2021-11-29] MEDS: Multivitamins/Minerals TAB PO SCH (09:03)
[2021-11-29] MEDS: Nicotine PATCH 21 MG/24 HR PATCH TRANSDERM SCH (09:04)
[2021-11-29] MEDS: Nicotine GUM 4MG FRUIT FLAVOR PO PRN (20:13)
[2021-11-29] MEDS: Enoxaparin 40 MG/0.4 ML SYR SUBCUT SCH (20:13)
[2021-11-30] MEDS: Thiamine 100 MG/ML 2 ml VIAL 500 MG in NS 0.9% 250 ml 250 ML IV SCH ×3 (05:35→21:20)
[2021-11-30] MEDS: Multivitamins/Minerals TAB PO SCH (09:08)
[2021-11-30] MEDS: Nicotine PATCH 21 MG/24 HR PATCH TRANSDERM SCH (09:13)
[2021-11-30] MEDS: Enoxaparin 40 MG/0.4 ML SYR SUBCUT SCH (20:43)
[2021-11-30] MEDS: Nicotine GUM 4MG FRUIT FLAVOR PO PRN (21:39)
[2021-12-01] MEDS: Thiamine 100 MG/ML 2 ml VIAL 500 MG in NS 0.9% 250 ml 250 ML IV SCH ×3 (06:25→21:54)
[2021-12-01] MEDS: Multivitamins/Minerals TAB PO SCH (10:57)
[2021-12-01] MEDS: Nicotine PATCH 21 MG/24 HR PATCH TRANSDERM SCH (10:58)
[2021-12-01] MEDS: Enoxaparin 40 MG/0.4 ML SYR SUBCUT SCH ×2 (20:01→21:53)
[2021-12-02] MEDS: Thiamine 100 MG/ML 2 ml VIAL 500 MG in NS 0.9% 250 ml 250 ML IV SCH (04:49)
[2021-12-02] MEDS: Multivitamins/Minerals TAB PO SCH (07:52)
[2021-12-02] MEDS: Nicotine PATCH 21 MG/24 HR PATCH TRANSDERM SCH (07:52)
[2021-12-02] MEDS: Enoxaparin 40 MG/0.4 ML SYR SUBCUT SCH (20:06)
[2021-12-03 05:54] LABS: ABS Eosinophils 0.2 10^3/ul (0-0.6); ABS Lymphocytes 1.7 10^3/ul (1.0-4.8); ABS Monocytes 0.6 10^3/ul (0-0.8); Eosinophil % 3.8 %; Hematocrit 28 % (42-52); Hemoglobin 9.3 g/dL (14.0-18.0); Lymphocyte % 30.7 %; Mean Corpuscular HGB Conc 34 g/dL (31-36); Mean Corpuscular Hemoglobin 35 pg (27-31); Mean Corpuscular Volume 103 fL (80-94); Mean Platelet Volume 7.2 fL (7.4-10.4); Platelet Count 291 10^3/uL (150-450); Red Blood Count 2.69 10^6 /uL (4.18-5.48); Red Cell Distribution Width 16 % (10-15); White Blood Count 5.6 10^3/uL (3.5-10.8)
[2021-12-03] MEDS: Nicotine PATCH 21 MG/24 HR PATCH TRANSDERM SCH (07:55)
[2021-12-03] MEDS: Multivitamins/Minerals TAB PO SCH (07:57)
[2021-12-03] MEDS: Nicotine GUM 4MG FRUIT FLAVOR PO PRN (19:53)
[2021-12-03] MEDS: Enoxaparin 40 MG/0.4 ML SYR SUBCUT SCH (19:54)
[2021-12-03] MEDS ORDERED: LORazepam 2 mg VIAL 1 ml IV PUSH PRN (20:00)
[2021-12-03] MEDS ORDERED: Lorazepam PYXIS KEY PRN (20:00)
[2021-12-04] MEDS: Multivitamins/Minerals TAB PO SCH (09:35)
[2021-12-04] MEDS: Nicotine PATCH 21 MG/24 HR PATCH TRANSDERM SCH (09:35)
[2021-12-04] MEDS: Nicotine GUM 4MG FRUIT FLAVOR PO PRN ×3 (11:38→19:58)
[2021-12-04] MEDS: Enoxaparin 40 MG/0.4 ML SYR SUBCUT SCH (19:59)
[2021-12-05] MEDS: Nicotine PATCH 21 MG/24 HR PATCH TRANSDERM SCH (10:27)
[2021-12-05] MEDS: Multivitamins/Minerals TAB PO SCH (10:28)
[2021-12-05] MEDS: Enoxaparin 40 MG/0.4 ML SYR SUBCUT SCH (21:18)
[2021-12-06] MEDS ORDERED: LORazepam 2 mg VIAL 1 ml IM ONE (03:48)
[2021-12-06] MEDS ORDERED: Lorazepam PYXIS KEY PRN (03:48)
[2021-12-06] MEDS: Nicotine PATCH 21 MG/24 HR PATCH TRANSDERM SCH (09:53)
[2021-12-06] MEDS: Multivitamins/Minerals TAB PO SCH (09:54)
[2021-12-06] MEDS: Enoxaparin 40 MG/0.4 ML SYR SUBCUT SCH (20:25)
[2021-12-06] MEDS: Nicotine GUM 4MG FRUIT FLAVOR PO PRN (21:07)
[2021-12-07] MEDS: Multivitamins/Minerals TAB PO SCH (07:50)
[2021-12-07] MEDS: Nicotine PATCH 21 MG/24 HR PATCH TRANSDERM SCH (07:50)
[2021-12-07] MEDS: Enoxaparin 40 MG/0.4 ML SYR SUBCUT SCH (20:23)
[2021-12-07] MEDS: Nicotine GUM 4MG FRUIT FLAVOR PO PRN (22:31)
[2021-12-08] MEDS: Multivitamins/Minerals TAB PO SCH (08:21)
[2021-12-08] MEDS: Nicotine PATCH 21 MG/24 HR PATCH TRANSDERM SCH (08:21)
[2021-12-08] MEDS: Enoxaparin 40 MG/0.4 ML SYR SUBCUT SCH (21:11)
[2021-12-09] MEDS: Nicotine PATCH 21 MG/24 HR PATCH TRANSDERM SCH (09:44)
[2021-12-09] MEDS: Multivitamins/Minerals TAB PO SCH (09:44)
[2021-12-09] MEDS: Enoxaparin 40 MG/0.4 ML SYR SUBCUT SCH (21:01)
[2021-12-10] MEDS: Multivitamins/Minerals TAB PO SCH (08:32)
[2021-12-10] MEDS: Nicotine PATCH 21 MG/24 HR PATCH TRANSDERM SCH (08:32)
[2021-12-10] MEDS ORDERED: COVID-19 VACCINE, MRNA(MODERNA)/PF 100 MCG/0.5 ML IM ONE (11:38)
[2021-12-10] MEDS ORDERED: COVID-19 VACCINE, TRIS(PFIZER)/PF 30 MCG/0.3 ML IM ONE (12:04)
[2021-12-10] MEDS: Enoxaparin 40 MG/0.4 ML SYR SUBCUT SCH (19:54)
[2021-12-10] MEDS: Nicotine GUM 4MG FRUIT FLAVOR PO PRN (19:54)
[2021-12-11] MEDS: Multivitamins/Minerals TAB PO SCH (08:04)
[2021-12-11] MEDS: Nicotine PATCH 21 MG/24 HR PATCH TRANSDERM SCH (08:05)
[2021-12-11] MEDS: Enoxaparin 40 MG/0.4 ML SYR SUBCUT SCH (20:20)
[2021-12-11] MEDS: Nicotine GUM 4MG FRUIT FLAVOR PO PRN (20:30)
[2021-12-12] MEDS: Nicotine PATCH 21 MG/24 HR PATCH TRANSDERM SCH (09:44)
[2021-12-12] MEDS: Multivitamins/Minerals TAB PO SCH (09:45)
[2021-12-12] MEDS: Enoxaparin 40 MG/0.4 ML SYR SUBCUT SCH (20:59)
[2021-12-12] MEDS: Nicotine GUM 4MG FRUIT FLAVOR PO PRN (21:00)
[2021-12-13] MEDS: Nicotine GUM 4MG FRUIT FLAVOR PO PRN (01:37)
[2021-12-13] MEDS: Multivitamins/Minerals TAB PO SCH (11:02)
[2021-12-13] MEDS: Nicotine PATCH 21 MG/24 HR PATCH TRANSDERM SCH (11:03)
[2021-12-13] MEDS: Enoxaparin 40 MG/0.4 ML SYR SUBCUT SCH (20:57)
[2021-12-14] MEDS: Nicotine PATCH 21 MG/24 HR PATCH TRANSDERM SCH (08:39)
[2021-12-14] MEDS: Multivitamins/Minerals TAB PO SCH (08:41)
[2021-12-14] MEDS: Nicotine GUM 4MG FRUIT FLAVOR PO PRN (20:41)
[2021-12-14] MEDS: Enoxaparin 40 MG/0.4 ML SYR SUBCUT SCH (20:59)
[2021-12-15] MEDS: Nicotine GUM 4MG FRUIT FLAVOR PO PRN (00:34)
[2021-12-15] MEDS: Multivitamins/Minerals TAB PO SCH (07:55)
[2021-12-15] MEDS: Nicotine PATCH 21 MG/24 HR PATCH TRANSDERM SCH (07:55)
[2021-12-15] MEDS: Enoxaparin 40 MG/0.4 ML SYR SUBCUT SCH (20:46)
[2021-12-16] MEDS: Nicotine PATCH 21 MG/24 HR PATCH TRANSDERM SCH (09:00)
[2021-12-16] MEDS: Multivitamins/Minerals TAB PO SCH (09:00)
[2021-12-16] MEDS: Enoxaparin 40 MG/0.4 ML SYR SUBCUT SCH (20:55)
[2021-12-17] MEDS: Multivitamins/Minerals TAB PO SCH (09:56)
[2021-12-17] MEDS: Nicotine PATCH 21 MG/24 HR PATCH TRANSDERM SCH (09:56)
[2021-12-17] MEDS: Enoxaparin 40 MG/0.4 ML SYR SUBCUT SCH (21:23)
[2021-12-18] MEDS: Multivitamins/Minerals TAB PO SCH (07:07)
[2021-12-18] MEDS: Nicotine PATCH 21 MG/24 HR PATCH TRANSDERM SCH (07:08)
[2021-12-18] MEDS: Enoxaparin 40 MG/0.4 ML SYR SUBCUT SCH (19:58)
[2021-12-19] MEDS: Multivitamins/Minerals TAB PO SCH (07:27)
[2021-12-19] MEDS: Nicotine PATCH 21 MG/24 HR PATCH TRANSDERM SCH (07:27)
[2021-12-19] MEDS: Enoxaparin 40 MG/0.4 ML SYR SUBCUT SCH (20:00)
[2021-12-20] MEDS: Multivitamins/Minerals TAB PO SCH (07:44)
[2021-12-20] MEDS: Nicotine PATCH 21 MG/24 HR PATCH TRANSDERM SCH (07:45)
[2021-12-20] MEDS: Enoxaparin 40 MG/0.4 ML SYR SUBCUT SCH (19:47)
[2021-12-21] MEDS: Nicotine PATCH 21 MG/24 HR PATCH TRANSDERM SCH (09:26)
[2021-12-21] MEDS: Multivitamins/Minerals TAB PO SCH (09:27)
[2021-12-21] MEDS: Enoxaparin 40 MG/0.4 ML SYR SUBCUT SCH (21:58)
[2021-12-22] MEDS: Nicotine PATCH 21 MG/24 HR PATCH TRANSDERM SCH ×2 (04:52→14:19)
[2021-12-22] MEDS: Nicotine GUM 4MG FRUIT FLAVOR PO PRN (05:36)
[2021-12-22] MEDS: Multivitamins/Minerals TAB PO SCH (07:47)
[2021-12-22] MEDS: Enoxaparin 40 MG/0.4 ML SYR SUBCUT SCH (21:18)
[2021-12-23] MEDS: Multivitamins/Minerals TAB PO SCH (08:32)
[2021-12-23] MEDS: Nicotine PATCH 21 MG/24 HR PATCH TRANSDERM SCH (08:32)
[2021-12-23] MEDS: Enoxaparin 40 MG/0.4 ML SYR SUBCUT SCH (20:55)
[2021-12-23] MEDS: Nicotine GUM 4MG FRUIT FLAVOR PO PRN (20:58)
[2021-12-24] MEDS: Nicotine PATCH 14 MG/24 HR PATCH TRANSDERM SCH (08:31)
[2021-12-24] MEDS: Multivitamins/Minerals TAB PO SCH (08:31)
[2021-12-24] MEDS ORDERED: Nicotine PATCH 14 MG/24 HR PATCH TRANSDERM SCH (09:00)
[2021-12-24] MEDS: Enoxaparin 40 MG/0.4 ML SYR SUBCUT SCH (20:17)
[2021-12-25] MEDS: Nicotine PATCH 14 MG/24 HR PATCH TRANSDERM SCH (08:32)
[2021-12-25] MEDS: Multivitamins/Minerals TAB PO SCH (08:32)
[2021-12-25] MEDS: Nicotine GUM 4MG FRUIT FLAVOR PO PRN (13:51)
[2021-12-25] MEDS: Enoxaparin 40 MG/0.4 ML SYR SUBCUT SCH (19:36)
[2021-12-26] MEDS: Multivitamins/Minerals TAB PO SCH (08:01)
[2021-12-26] MEDS: Nicotine PATCH 14 MG/24 HR PATCH TRANSDERM SCH (08:02)
[2021-12-26] MEDS: Enoxaparin 40 MG/0.4 ML SYR SUBCUT SCH (22:11)
[2021-12-27] MEDS: Nicotine PATCH 14 MG/24 HR PATCH TRANSDERM SCH (08:04)
[2021-12-27] MEDS: Multivitamins/Minerals TAB PO SCH (08:04)
[2021-12-27] MEDS: Enoxaparin 40 MG/0.4 ML SYR SUBCUT SCH (20:21)
[2021-12-28] MEDS: Nicotine PATCH 14 MG/24 HR PATCH TRANSDERM SCH (08:36)
[2021-12-28] MEDS: Multivitamins/Minerals TAB PO SCH (08:36)
[2021-12-28] MEDS: Enoxaparin 40 MG/0.4 ML SYR SUBCUT SCH (21:35)
[2021-12-29] MEDS: Nicotine PATCH 14 MG/24 HR PATCH TRANSDERM SCH (08:18)
[2021-12-29] MEDS: Multivitamins/Minerals TAB PO SCH (08:18)
[2021-12-29] MEDS: Enoxaparin 40 MG/0.4 ML SYR SUBCUT SCH (20:07)
[2021-12-30] MEDS: Nicotine PATCH 14 MG/24 HR PATCH TRANSDERM SCH (09:19)
[2021-12-30] MEDS: Multivitamins/Minerals TAB PO SCH (09:19)
[2021-12-30] MEDS ORDERED: COVID-19 VACCINE, TRIS(PFIZER)/PF 30 MCG/0.3 ML IM ONE (16:30)
[2021-12-30] MEDS: Enoxaparin 40 MG/0.4 ML SYR SUBCUT SCH (20:15)
[2021-12-31] MEDS: Multivitamins/Minerals TAB PO SCH (09:01)
[2021-12-31] MEDS: Nicotine PATCH 14 MG/24 HR PATCH TRANSDERM SCH (09:01)
[2021-12-31] MEDS: Enoxaparin 40 MG/0.4 ML SYR SUBCUT SCH (21:33)
[2022-01-01] MEDS: Multivitamins/Minerals TAB PO SCH (08:13)
[2022-01-01] MEDS: Nicotine PATCH 14 MG/24 HR PATCH TRANSDERM SCH (08:16)
[2022-01-01] MEDS: Enoxaparin 40 MG/0.4 ML SYR SUBCUT SCH (22:01)
[2022-01-02] MEDS: Multivitamins/Minerals TAB PO SCH (09:18)
[2022-01-02] MEDS: Nicotine PATCH 14 MG/24 HR PATCH TRANSDERM SCH (09:19)
[2022-01-02] MEDS: Enoxaparin 40 MG/0.4 ML SYR SUBCUT SCH (19:58)
[2022-01-03] MEDS: Nicotine PATCH 14 MG/24 HR PATCH TRANSDERM SCH (07:56)
[2022-01-03] MEDS: Multivitamins/Minerals TAB PO SCH (07:56)
[2022-01-03] MEDS: Enoxaparin 40 MG/0.4 ML SYR SUBCUT SCH (21:27)
[2022-01-04] MEDS: Multivitamins/Minerals TAB PO SCH (08:32)
[2022-01-04] MEDS: Nicotine PATCH 14 MG/24 HR PATCH TRANSDERM SCH (08:32)
[2022-01-04] MEDS: Enoxaparin 40 MG/0.4 ML SYR SUBCUT SCH (20:17)
[2022-01-05] MEDS: Multivitamins/Minerals TAB PO SCH (09:00)
[2022-01-05] MEDS: Nicotine PATCH 14 MG/24 HR PATCH TRANSDERM SCH (09:00)
[2022-01-05] MEDS: Enoxaparin 40 MG/0.4 ML SYR SUBCUT SCH (20:47)
[2022-01-06] MEDS: Nicotine PATCH 14 MG/24 HR PATCH TRANSDERM SCH (08:49)
[2022-01-06] MEDS: Multivitamins/Minerals TAB PO SCH (08:49)
[2022-01-06] MEDS: Enoxaparin 40 MG/0.4 ML SYR SUBCUT SCH (20:46)
[2022-01-07] MEDS: Multivitamins/Minerals TAB PO SCH (08:07)
[2022-01-07] MEDS: Nicotine PATCH 14 MG/24 HR PATCH TRANSDERM SCH (08:07)
[2022-01-07] MEDS: Enoxaparin 40 MG/0.4 ML SYR SUBCUT SCH (19:51)
[2022-01-08] MEDS: Multivitamins/Minerals TAB PO SCH (08:38)
[2022-01-08] MEDS: Nicotine PATCH 14 MG/24 HR PATCH TRANSDERM SCH (08:38)
[2022-01-08] MEDS: Enoxaparin 40 MG/0.4 ML SYR SUBCUT SCH (19:28)
[2022-01-09] MEDS: Nicotine PATCH 14 MG/24 HR PATCH TRANSDERM SCH (07:38)
[2022-01-09] MEDS: Multivitamins/Minerals TAB PO SCH (07:38)
[2022-01-09] MEDS: Enoxaparin 40 MG/0.4 ML SYR SUBCUT SCH (20:56)
[2022-01-10] MEDS: Nicotine PATCH 14 MG/24 HR PATCH TRANSDERM SCH (08:52)
[2022-01-10] MEDS: Multivitamins/Minerals TAB PO SCH (08:52)
[2022-01-10] MEDS: Enoxaparin 40 MG/0.4 ML SYR SUBCUT SCH (20:58)
[2022-01-10] MEDS: Nicotine GUM 4MG FRUIT FLAVOR PO PRN (21:04)
[2022-01-11] MEDS: Nicotine PATCH 14 MG/24 HR PATCH TRANSDERM SCH (08:02)
[2022-01-11] MEDS: Multivitamins/Minerals TAB PO SCH (08:03)
[2022-01-11] MEDS: Enoxaparin 40 MG/0.4 ML SYR SUBCUT SCH (20:57)
[2022-01-12] MEDS: Nicotine PATCH 14 MG/24 HR PATCH TRANSDERM SCH (09:00)
[2022-01-12] MEDS: Multivitamins/Minerals TAB PO SCH (09:00)
[2022-01-12] MEDS: Enoxaparin 40 MG/0.4 ML SYR SUBCUT SCH (20:50)
[2022-01-13 08:59] LABS: Calcium 9.7 mg/dL (8.6-10.3); Potassium 4.4 mmol/L (3.5-5.0); eGFR CKD-EPI 113.7 (>60)
[2022-01-13] MEDS: Multivitamins/Minerals TAB PO SCH (09:06)
[2022-01-13] MEDS: Nicotine PATCH 14 MG/24 HR PATCH TRANSDERM SCH (09:06)
[2022-01-13] MEDS: Enoxaparin 40 MG/0.4 ML SYR SUBCUT SCH (21:16)
[2022-01-14] MEDS: Nicotine PATCH 14 MG/24 HR PATCH TRANSDERM SCH (07:32)
[2022-01-14] MEDS: Nicotine GUM 4MG FRUIT FLAVOR PO PRN (07:32)
[2022-01-14] MEDS: Multivitamins/Minerals TAB PO SCH (07:32)
[2022-01-14 15:59] LABS: Rapid COVID-19 Molecular Undetected (Undetected)
[2022-01-14] MEDS: Enoxaparin 40 MG/0.4 ML SYR SUBCUT SCH (21:03)
[2022-01-15] MEDS: Multivitamins/Minerals TAB PO SCH (08:56)
[2022-01-15] MEDS: Nicotine PATCH 14 MG/24 HR PATCH TRANSDERM SCH (08:57)
[2022-01-15 11:22] VITALS: BP 119/75
== END 2022-01-15 12:47 | DRG 421 ==
LOC: SUATTDRO 15:05 → MEDTELE 15:05
PROVIDERS: ADMIT Student in an Organized Health Care Education/Training Program; ATTEND Internal Medicine